=== PATIENT | male | born 1980 | race Caucasian/White ===

== ENCOUNTER 2020-06-19 09:58 | Emergency (ER) | payer OTHER ==
[~2020-06-19] VITALS: Ht 182.9 cm; Wt 117.9 kg
[~2020-06-19 09:58] MED LIST: IBUPROFEN 200200 M1 PO; IBUPROFEN 800800 M1 PO; MEDROLDOSEPACK PO; NOHOMEMEDICATIONS; NORCO 5-325 TA1 EACH PO; PENICILLIN VK500 MG PO; ROBAXIN500 MG PO
[2020-06-19 10:20] LABS: ABSOLUTE BASOPHILS 0.1 thou/uL (0.0-0.2); ABSOLUTE EOSINOPHILS 0.2 thou/uL (0.0-0.7); ABSOLUTE LYMPHOCYTES 2.7 thou/uL (0.8-5.3); ABSOLUTE MONOCYTES 0.8 thou/uL (0.0-1.2); ABSOLUTE NEUTROPHILS 3.5 thou/uL (1.6-8.1); EOSINOPHILS 2.7 %; MCH 32.3 pg (26.0-34.0); MCHC 33.3 g/dL (28.0-37.0); MONOCYTES 10.7 %; MPV 7.7 fl. (7.2-11.1); NUCLEATED RBCS 0 /100WBC; PLATELET COUNT* 314 thou/uL (150-400); POLYS 48.6 %; RBC 4.64 mil/uL (4.50-6.00); RDW-CV 14.2 % (10.5-14.5); WBC 7.2 thou/uL (4.0-11.0)
[2020-06-19 10:30] LABS: POTASSIUM 3.4 mmol/L (3.5-5.1)
[2020-06-19 10:53] LABS: ALBUMIN 3.8 g/dL (3.4-5.0); CK-MB MASS 0.6 ng/mL (<0.5-3.6); MAGNESIUM 1.7 mg/dL (1.8-2.4); TOTAL BILIRUBIN 0.4 mg/dL (<0.1-1.0); TOTAL PROTEIN 7.6 g/dL (6.4-8.2)
[2020-06-19 11:07] LABS: PROTIME 10.6 Seconds (9.20-11.50)
[2020-06-19 11:55] VITALS: BP 143/92
--- NOTE | 2020-06-20 11:33 | EKG ---
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: [place] : 1980 Requested By: Tate Aviles Order Number: [id number] MD: Sheldon Foreman Measurements Intervals [place] Rate: 77 P: 50 DC: 140 QRS: 26 QRSD: 110 T: 47 QT: 415 QTc: 470 Interpretive Statements Sinus rhythm Abnormal R-wave progression, early transition Borderline T abnormalities, anterior leads No previous ECG available for comparison Electronically Signed On 06-20-2020 11:33:06 PSYCH NP by Sheldon Foreman [email or web address] <ELECTRONICALLY SIGNED> By: Sheldon Foreman MD, [facility] 06/20/20 1133 1005 1005 Sheldon Foreman MD, [facility] /EPI
== END 2020-06-19 11:55 | disposition home or self-care (01) ==
LOC: M.ERS 09:58
PROVIDERS: Family Medicine
DX: M54.6 Pain in thoracic spine (principal); Z88.6 Allergy status to analgesic agent; Z79.899 Other long term (current) drug therapy

== ENCOUNTER 2020-07-03 23:16 | Emergency (ER) | payer OTHER ==
[~2020-07-03] VITALS: Ht 182.9 cm; Wt 117.9 kg
[2020-07-04 00:23] LABS: ABSOLUTE EOSINOPHILS 0.4 thou/uL (0.0-0.7); ABSOLUTE LYMPHOCYTES 2.3 thou/uL (0.8-5.3); ABSOLUTE MONOCYTES 0.7 thou/uL (0.0-1.2); ABSOLUTE NEUTROPHILS 4.9 thou/uL (1.6-8.1); BASOPHILS 0.6 %; EOSINOPHILS 4.2 %; HEMATOCRIT 44.2 % (42.0-52.0); LYMPHOCYTES 27.3 %; MCHC 33.9 g/dL (28.0-37.0); MCV 97.3 fL (80.0-100.0); MONOCYTES 8.6 %; MPV 7.3 fl. (7.2-11.1); NUCLEATED RBCS 0 /100WBC; PLATELET COUNT* 289 thou/uL (150-400); POLYS 59.3 %; RBC 4.54 mil/uL (4.50-6.00); RDW-CV 14.3 % (10.5-14.5); WBC 8.3 thou/uL (4.0-11.0)
[2020-07-04 00:29] LABS: CALCIUM 8.6 mg/dL (8.5-10.1); POTASSIUM 3.7 mmol/L (3.5-5.1)
[2020-07-04 00:33] LABS: APTT 23.3 Seconds (25.0-31.3); INR < 0.9; PROTIME 9.9 Seconds (9.20-11.50)
[2020-07-04 00:34] LABS: ALBUMIN 3.5 g/dL (3.4-5.0); TOTAL BILIRUBIN 0.2 mg/dL (<0.1-1.0); TOTAL PROTEIN 7.3 g/dL (6.4-8.2)
[2020-07-04 00:55] LABS: URINE BILIRUBIN NEGATIVE (Negative); URINE BLOOD NEGATIVE (Negative); URINE CLARITY CLEAR; URINE COLOR YELLOW; URINE GLUCOSE-RANDOM NEGATIVE (Negative); URINE KETONES NEGATIVE (Negative); URINE LEUKOCYTES-REFLEX NEGATIVE (Negative); URINE NITRITE-REFLEX NEGATIVE (Negative); URINE PROTEIN NEGATIVE (Negative); URINE SPECIFIC GRAVITY 1.025 (1.005-1.030); URINE UROBILINOGEN 0.2 E.U./dl (0.2-1.0)
[2020-07-04 01:22] LABS: AMP/METHAMP Negative (Negative); BARBITURATES Negative (Negative); BENZODIAZEPINES Negative (Negative); COCAINE Negative (Negative); METHADONE Negative (Negative); OPIATES Negative (Negative); PCP Negative (Negative); THC Negative (Negative)
[2020-07-04] MEDS ORDERED: MELOXICAM15 MG PO (03:57)
[2020-07-04] MEDS ORDERED: CYCLOBENZAPRINE5 MG PO (04:01)
[2020-07-04 04:20] VITALS: BP 150/96
--- NOTE | 2020-07-06 15:04 | EKG ---
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[place] : 1980 Requested By: Dorothy Chapa Order Number: [id number] MD: Jerod Martinez Measurements Intervals [place] Rate: 83 P: 59 [place]: 128 QRS: 4 QRSD: 100 T: 34 QT: 391 QTc: 460 Interpretive Statements Sinus rhythm Borderline T abnormalities, anterior leads Baseline wander in lead(s) V2 Compared to ECG 06/19/2020 10:05:01 No significant changes Electronically Signed On 07-06-2020 15:03:52 FLAME BURNER by Jerod Martinez [email or web address] <ELECTRONICALLY SIGNED> By: Jerod Martinez MD, FAC 07/06/20 1503 2331 2331 Jerod Martinez MD, [facility] /EPI
== END 2020-07-04 04:20 | disposition home or self-care (01) ==
LOC: M.ERS 23:16
PROVIDERS: Personal Emergency Response Attendant
DX: M54.2 Cervicalgia (principal); R61 Generalized hyperhidrosis; R10.9 Unspecified abdominal pain

== ENCOUNTER 2021-07-04 11:53 | Emergency (ER) | payer OTHER ==
[~2021-07-04] VITALS: Ht 182.9 cm; Wt 117.9 kg
[~2021-07-04 11:53] MED LIST changes: +CYCLOBENZAPRINE5 MG PO; +MELOXICAM15 MG PO
[2021-07-04 13:28] LABS: ABSOLUTE EOSINOPHILS 0.1 thou/uL (0.0-0.7); ABSOLUTE LYMPHOCYTES 1.4 thou/uL (0.8-5.3); ABSOLUTE MONOCYTES 0.3 thou/uL (0.0-1.2); ABSOLUTE NEUTROPHILS 1.8 thou/uL (1.6-8.1); BASOPHILS 0.2 %; EOSINOPHILS 3.3 %; HEMATOCRIT 45.2 % (42.0-52.0); HEMOGLOBIN 15.4 gm/dL (14.0-18.0); LYMPHOCYTES 37.3 %; MCH 34.5 pg (26.0-34.0); MCV 101.5 fL (80.0-100.0); MONOCYTES 8.5 %; MPV 7.1 fl. (7.2-11.1); NUCLEATED RBCS 0 /100WBC; PLATELET COUNT* 270 thou/uL (150-400); POLYS 50.7 %; RBC 4.45 mil/uL (4.50-6.00); RDW-CV 14.4 % (10.5-14.5); WBC 3.6 thou/uL (4.0-11.0)
[2021-07-04 13:31] LABS: CALCIUM 7.9 mg/dL (8.5-10.1); CREATININE 0.9 mg/dL (0.6-1.3); POTASSIUM 3.4 mmol/L (3.5-5.1)
[2021-07-04 13:36] LABS: ALBUMIN 3.3 g/dL (3.4-5.0); TOTAL BILIRUBIN 0.4 mg/dL (<0.1-1.0); TOTAL PROTEIN 6.9 g/dL (6.4-8.2)
[2021-07-04] MEDS ORDERED: PREDNISONE50 MG PO (13:43)
[2021-07-04] MEDS ORDERED: IBUPROFEN 800800 M1 PO (13:43)
[2021-07-04 13:52] VITALS: BP 151/86
--- NOTE | 2021-07-05 15:27 | EKG ---
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: : 1980 Requested By: Laureano Bal Order Number: [id number] MD: Jerod Martinez Measurements Intervals [place] Rate: 73 P: 30 NM: 134 QRS: -14 QRSD: 111 T: 14 QT: 438 QTc: 483 Interpretive Statements Sinus rhythm Borderline T abnormalities, anterior leads Borderline prolonged QT interval Compared to ECG 07/03/2020 23:31:58 No significant changes Electronically Signed On 07-05-2021 15:27:28 AMBULATORY ANALYST by Jerod Martinez [email or web address] <ELECTRONICALLY SIGNED> By: Jerod Martinez MD, [facility] 07/05/21 1527 1214 1214 Jerod Martinez MD, [facility] /EPI
== END 2021-07-04 13:53 | disposition home or self-care (01) ==
LOC: M.ERS 11:53
PROVIDERS: Emergency Medicine Emergency Medical Services
DX: M54.12 Radiculopathy, cervical region (principal); F17.210 Nicotine dependence, cigarettes, uncomplicated; Z88.8 Allergy status to other drugs, medicaments and biological substances